=== PATIENT | female | born 1980 | race Caucasian/White ===

== ENCOUNTER → 2019-01-09 | Outpatient (CLI) | payer OTHER ==
--- NOTE | 2019-01-09 17:17 | REPMRS ---
Patient History The patient states she has not had a clinical breast exam in over a year. No known family history of cancer. Taking hormonal contraceptives for 3 years. Digital Mammo Screening Bilat: January 09, 2019 - Exam #: [id number] Bilateral CC and MLO view(s) were taken. Technologist: Isa Mina, Technologist No prior studies available for comparison. FINDINGS: The breast tissue is heterogeneously dense. This may lower the sensitivity of mammography. There is no evidence of dominant mass, architectural distortion, or grouped microcalcification typical of malignancy. Assessment: BI-RADS/ACR category 1 mammogram. Negative Mammogram. Recommendation Routine screening mammogram of both breasts in 1 year (for women over age 40). This patient's Lifetime Breast Cancer RIsk is estimated at 10.9 %. This mammogram was interpreted with the aid of an FDA-approved computer-aided dectection system. Electronically Signed By: Jayro Leija MD 01/09/19 [id number]
== END ==
LOC: M RAD 13:09
PROVIDERS: ATTEND Family Medicine
DX: Z12.31 Encounter for screening mammogram for malignant neoplasm of breast (principal)

== ENCOUNTER 2019-02-06 10:11 | Emergency (ER) | payer OTHER ==
[~2019-02-06] VITALS: Ht 160 cm; Wt 85.8 kg
[2019-02-06 10:11] VITALS: BP 131/72
[2019-02-06 11:34] LABS: BASO % 0.3 % (0.0-1.0); EOS # 0.1 10^3/uL (0.0-0.5); EOS % 0.9 % (0.0-3.0); HEMATOCRIT 40.8 % (36.0-47.0); HEMOGLOBIN 13.2 g/dl (12.0-15.5); LYMPH % 30.1 % (24.0-44.0); MEAN CORPUSCULAR HEMOGLOBIN 29.1 pg (27.0-33.0); MEAN CORPUSCULAR HGB CONC 32.4 g/dl (32.0-36.5); MEAN CORPUSCULAR VOLUME 90.1 fl (80.0-96.0); MONO # 0.4 10^3/uL (0.0-0.8); MONO % 5.7 % (0.0-5.0); NEUTROPHILS # 4.2 10^3/uL (1.5-8.5); NEUTROPHILS % 62.7 % (36.0-66.0); PLATELET COUNT, AUTOMATED 225 10^3/uL (150-450); RED BLOOD COUNT 4.53 10^6/uL (4.00-5.40); WHITE BLOOD COUNT 6.6 10^3/uL (4.0-10.0)
[2019-02-06 12:13] LABS: ALBUMIN 3.2 GM/DL (3.2-5.2); ALT/SGPT 21 U/L (12-78); AMYLASE 47 U/L (25-115); BILIRUBIN,DIRECT 0.1 MG/DL (0.0-0.2); BILIRUBIN,TOTAL 0.5 MG/DL (0.2-1.0); BLOOD UREA NITROGEN 9 MG/DL (7-18); CALCIUM LEVEL 8.7 MG/DL (8.5-10.1); CARBON DIOXIDE LEVEL 28 MEQ/L (21-32); CHLORIDE LEVEL 107 MEQ/L (98-107); CREATININE FOR GFR 0.82 MG/DL (0.55-1.30); GLOMERULAR FILTRATION RATE > 60.0 (>58); GLUCOSE, FASTING 113 MG/DL (70-100); LIPASE 124 U/L (73-393); POTASSIUM SERUM 4.3 MEQ/L (3.5-5.1); SODIUM LEVEL 141 MEQ/L (136-145); TOTAL PROTEIN 6.8 GM/DL (6.4-8.2)
[2019-02-06 12:17] LABS: HCG, SERUM QUALITATIVE NEGATIVE (NEGATIVE)
--- NOTE | 2019-02-06 13:00 | REP ---
KUB: Single view. History: Right upper quadrant pain. Findings: There are clips in right upper quadrant of the abdomen consistent with prior cholecystectomy. The bowel gas pattern is normal. Psoas margins and flank stripes are intact. No mass, organomegaly, or pathologic calcification is appreciated. Impression: Clips in the right upper quadrant. Otherwise negative KUB. Electronically Signed by Norris Leija MD 02/06/2019 12:52 P
[2019-02-06] MEDS ORDERED: KETOROLAC 30 MG/ML VIAL (J1885) IV ONE (14:45)
[2019-02-06] MEDS ORDERED: MIRA3350 PO (14:47)
--- NOTE | 2019-02-06 14:59 | REP ---
Right upper quadrant sonography: History: Right upper quadrant pain. Comparison is made with today's KUB. Findings: The gallbladder surgically absent. Scanning through the right upper quadrant of the abdomen demonstrates homogeneous liver parenchyma. No pancreatic abnormality is noted. The common bile duct is normal measuring at 0.5 cm in diameter. There is no evidence of ascites or right renal abnormality. The right kidney measures 11.2 x 5.2 x 3.8 cm. Impression: Negative right upper quadrant sonography post cholecystectomy. Normal CBD. Electronically Signed by Norris Leija MD 02/06/2019 02:50 P
== END 2019-02-06 15:20 | disposition home or self-care (01) ==
LOC: M ED 10:11
DX: R10.11 Right upper quadrant pain (principal); Z88.8 Allergy status to other drugs, medicaments and biological substances; Z91.018 Allergy to other foods
CPT/HCPCS: 74018; 76705; 80048; 80076; 81001; 82150; 83690; 84703; 85025; 87088; 87186; 96374; 99284; J1885

== ENCOUNTER → 2022-07-27 | Outpatient (CLI) | payer OTHER ==
[~2022-07-27] MED LIST: MIRA3350 PO
== END ==
LOC: M WHC 12:54
PROVIDERS: ATTEND Nurse Practitioner Primary Care
DX: Z12.31 Encounter for screening mammogram for malignant neoplasm of breast (principal); R92.8 Other abnormal and inconclusive findings on diagnostic imaging of breast

== ENCOUNTER → 2022-08-17 | Outpatient (CLI) | payer OTHER | LOC: M WHC 08:32 | PROVIDERS: ATTEND Nurse Practitioner Primary Care | DX: Z12.39 Encounter for other screening for malignant neoplasm of breast (principal) | CPT/HCPCS: 76642; 77065; G0279 ==

== ENCOUNTER → 2023-01-17 | Outpatient (CLI) | payer OTHER ==
[~2023-01-17] MED LIST changes: +PROHANCE 279.3MG/ML 15ML VIAL ONE; +PROHANCE 279.3MG/ML 5ML VIAL ONE
== END ==
LOC: M PLAIMG 09:03
PROVIDERS: ATTEND Nurse Practitioner Primary Care
DX: Z12.31 Encounter for screening mammogram for malignant neoplasm of breast (principal)